=== PATIENT | female | born 2005 | race Two or more races ===

== ENCOUNTER 2025-03-12 14:06 | Emergency (ER) | payer MEDICAID, SELFPAY ==
[2025-03-12 14:59] VITALS: BP 106/71; PULSE 78; RESP 16; TEMP 36.9; O2SAT 99
--- NOTE | 2025-03-12 15:01 | XR_ITS ---
Examination: Complete OB ultrasound greater than 14 weeks Date and time of exam: March 12, 2025, 1520 hours INDICATIONS: Pelvic pain beginning 4 days ago Findings: Viable intrauterine single fetus with single amniotic sac presentation breech Cardiac motion 143 BPM Placenta anterior grade 0 Umbilical cord insertion 3 vessel seen Adequate amniotic fluid spine maternal right Cervix 3.9 cm Ovaries obscured by bowel gas. Composite estimated gestational age based on BPD, head circumference, abdominal circumference, femur length is 16 weeks 2 days Estimated weight 148 g. Survey of intracranial anatomy, spinal anatomy, abdominal anatomy, four-chamber heart performed with no abnormalities identified. Impression: Viable intrauterine gestation breech presentation.
--- NOTE | 2025-03-12 15:02 | PD.EDABDPN ---
ED Abdominal Pain RME/HPI General Chief Complaint: Abdominal Pain Stated complaint: ABD PAIN X 4 DAYS, PREG 16WK 4DYS Time seen by provider: 03/12/25 14:25 Arrival date/time: 03/12/25 14:06 RME / HPI RME / HPI narrative: 19-year-old female patient came in for evaluation regarding left lower abdominal pain. Onset of symptoms for about 5 days, associated with pelvic cramping. Severity of symptoms mild. Denies any dysuria denies any hematuria denies any frequency denies any vaginal bleeding or spotting. Patient is about 16 weeks and 4 days . Patient is 3 para 1 0. Related Data Home Medications ?Medication ?Instructions ?Recorded ?Confirmed albuterol sulfate 90 mcg/actuation 1 puff inhalation Q4H PRN 05/05/22 12/12/22 aerosol inhaler Shortness Of Breath Or Wheezing prenat.vits,jessica,[id number]-[id number] tab 12/21/22 Previous Rx's ?Medication ?Instructions ?Recorded diphenhydramine HCl 25 mg capsule 25 mg PO Q8H PRN itching #30 caps 11/13/22 permethrin 5 % topical cream 1 applic topical Q14D 2 doses #60 12/26/22 (Elimite) grams Allergies Allergy/AdvReac Type Severity Reaction Status Date / Time No Known Allergies Allergy Verified 03/12/25 14:09 Review of Systems Review of Systems Narrative Review of Systems: Review of system reviewed and within normal limits except mentioned in HPI ED Exam Narrative Physical exam: VITAL SIGNS: Reviewed. GENERAL APPEARANCE: Alert and interactive, follows commands, no acute distress, HEAD AND FACE: Non-traumatic. ENT: PERRL, pink conjunctivitis, eyelid no trauma, Mucous membrane moist. NECK: Supple, nontender, no nuchal rigidity. CHEST: No tenderness, no crepitus, no paradoxical movement, no retractions. LUNGS: Clear, well ventilated, symmetric, no rales, no wheezing, no ronchi, no stridor, good breath sounds bilaterally. HEART: Regular rate, regular rhythm, no murmur, no gallops. ABDOMEN: Soft, positive bowel sounds, nondistended, no guarding, nontender, no rebound, no masses, RECTAL: Deferred. GENITAL: Deferred. NEUROLOGICAL: Gross motor function intact sensory function intact, Appropriate for age. MUSCULOSKELETAL: low back nontender, full range of motion. EXTREMITIES: Nontender, full range of motion. SKIN: Color pink, dry, no rash, no lacerations, no abrasions, no contusions. LYMPHATICS: Deferred. Course Quality Measures none Orders Category Date Time Status US OB >= 14 weeks Fetus Stat Exams 03/12/25 15:01 Completed BMP [Basic Metabolic Panel] Stat Lab 03/12/25 15:13 Completed CBC [CBC] Stat Lab 03/12/25 15:13 Completed UA, C/S IF [Urinalysis, C/S if Indicated] Stat Lab 03/12/25 16:06 Completed Vital Signs Vital signs: Vital Signs Temperature 98.5 F 03/12/25 14:59 Pulse Rate 78 03/12/25 14:59 Respiratory Rate 16 03/12/25 14:59 Blood Pressure 106/71 03/12/25 14:59 Pulse Oximetry (%) 99 03/12/25 14:59 Oxygen Delivery Method Room Air 03/12/25 14:59 Abdominal Pain MDM [facility] Narrative [facility] Narrative:: 19-year-old female patient came in for evaluation regarding left lower abdominal pain. Onset of symptoms for about 5 days, associated with pelvic cramping. Severity of symptoms mild. Denies any dysuria denies any hematuria denies any frequency denies any vaginal bleeding or spotting. Patient is about 16 weeks and 4 days . Patient is 3 para 1 0. Lupus workup all came back unremarkable including ultrasound of the which showed single live intrauterine gestation about 16 weeks no abnormality noted. Results discussed with the patient. Patient was advised to return to emergency room for vaginal bleeding, fever or vomiting. Currently patient is not having any pain prior to discharge. Stable for discharge home Patient data External records reviewed:: None Clinical information provided by:: patient Social determinants that could affect healthcare access:: none Patient has the following chronic illnesses:: None How is presenting disease/condition affected by chronic disease/condition?: no chronic disease Evaluation data The following diagnostics were reviewed and interpreted by me:: lab results and radiology exam(s) Lab and/or radiology exams considered but not ordered:: None Interpretation Summary: See results MDM Medications / Prescriptions Medications or Prescriptions considered but not ordered:: None Medication administrations:: None Consultations Consultation(s) initiated? (list below): No Diagnosis Differential diagnosis abdominal pain: abdominal pain, constipation and other (UTI) Most likely diagnosis given after review of the tests above:: Abdominal pain, 16 weeks Admission Indicated Admission indicated?: not indicated Admission Request Was there a request for admission?: No Disposition Plan Disposition Plan: Discharge Discharge Attestation Discharge Attestation: The patient was given an opportunity to ask questions and understood the discharge instructions. Discharge instructions specifically effects, indications for sooner follow up or return to the emergency department, and the expected course of current diagnosis. Patient condition: Stable Discharge Plan Plan Patient Disposition: HOME (Self Care) Discharge Disposition comment: Stable Prescriptions/Referrals Prescriptions/Med Rec: No Action albuterol sulfate 90 mcg/actuation HFA aerosol inhaler 1 puff INHALATION Q4H PRN (Reason: Shortness Of Breath Or Wheezing) Patient Comments: INHALE 1 PUFF BY MOUTH EVERY 4-6 HOURS NEEDED Rx Instructions: INHALE 1 PUFF BY MOUTH EVERY 4-6 HOURS NEEDED diphenhydramine HCl 25 mg capsule 25 mg PO Q8H PRN (Reason: itching) Qty: 30 0RF prenat.vits,jessica,[id number] Tablet permethrin [Elimite] 5 % cream 1 applic topical Q14D Qty: 60 0RF Rx Instructions: apply second treatment 14 days after first treatment if live lice remain Referrals: Godfrey Mitchell MD [Primary Care Provider, Family Practice] - In 1 week Problem List Clinical Impression: Abdominal pain, and not yet delivered in second trimester Patient/Caregiver Discharge Instructions Discharge Activity: activity as tolerated Education Materials: Abdominal Pain Additional Instructions: Thank you for the opportunity for serving you today. You are stable for discharged . 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
[2025-03-12 15:26] LABS: Basophils # (Auto) 0.0 Thou/mm3 (0.0-0.2); Basophils % (Auto) 0 % (0-2.5); Eosinophils # (Auto) 0.1 Thou/mm3 (0.0-0.5); Eosinophils % (Auto) 1 % (0-10); Hematocrit 35.8 % (36.0-46.0); Hemoglobin 12.4 g/dL (12.0-16.0); Immature Granulocytes Auto 0.10 Thou/mm3 (0.00-0.00); Lymphocytes # (Auto) 2.4 Thou/mm3 (1.0-4.8); Lymphocytes % (Auto) 24 % (10-50); Mean Corpuscular HGB Conc 34.6 g/dl (31.0-37.0); Mean Corpuscular Hemoglobin 29.7 pg (25.0-35.0); Mean Corpuscular Volume 86 fL (80-100); Monocytes # (Auto) 0.8 Thou/mm3 (0.0-0.8); Monocytes % (Auto) 8 % (0-12); Neutrophils # (Auto) 6.4 Thou/mm3 (1.8-7.7); Neutrophils % (Auto) 65 % (37-80); Nucleated Red Blood Cell # 0.00 Thou/mm3 (0.00-0.00); Nucleated Red Blood Cell % 0 /100 WBC (0); Platelet Count 253 Thou/mm3 (140-440); RDW Standard Deviation 37.8 fL (36.4-46.3); Red Blood Count 4.17 Miln/mm3 (4.00-5.20); White Blood Count 9.8 Thou/mm3 (4.5-11.0)
[2025-03-12 15:41] LABS: Anion Gap 11 (7-16); BUN/Creatinine Ratio 10 Ratio (12-20); Blood Urea Nitrogen < 5 mg/dL (9-23); Calcium 9.5 mg/dL (8.3-10.6); Carbon Dioxide 24.3 mMol/L (20.0-31.0); Chloride 103 mMol/L (98-107); Creatinine (Component) 0.5 mg/dL (0.6-1.3); Estimated Creatinine Clearance 149.6 mL/min (>60); Glucose 84 mg/dL (74-106); Osmolality,Calculated 271 (275-295); Potassium 3.5 mMol/L (3.4-5.1); Sodium 138 mMol/L (136-145); eGFR > 60 See Note
[2025-03-12 16:12] LABS: Collection Type, Urine Clean Catch
[2025-03-12 16:46] LABS: Bacteria,Urine Rare; Bilirubin,Urine Negative (Negative); Blood,Urine Negative (Negative); Clarity,Urine Clear (Clear/Hazy); Color,Urine Colorless (Lt Yel-Yel); Culture Indicated,Urine Not Indicated; Glucose, Urine Negative (Negative); Ketones,Urine Negative (Negative); Leukocyte Esterase,Urine Negative (Negative); Nitrite,Urine Negative (Negative); PH,Urine 6.5 (5.0-7.0); Protein,Urine Negative (Neg - Trace); RBC,Urine 4 /hpf (0-3); Specific Gravity,Urine 1.007 (1.001-1.035); Squamous Epithelial Cell,Urine 3 /hpf (0-5); Urobilinogen,Urine Negative mg/dL (0.0-1.0); WBC,Urine 2 /hpf (0-5)
== END 2025-03-12 18:43 | disposition home or self-care (01) ==
PROVIDERS: Nurse Practitioner Family; Emergency Provider Emergency Medicine; PCP Family Medicine
DX: O26.892 Other specified pregnancy related conditions, second trimester (principal); R10.32 Left lower quadrant pain; R10.2 Pelvic and perineal pain; Z3A.16 16 weeks gestation of pregnancy
CPT/HCPCS: 36415; 76805; 80048; 81001; 85025; 99283

== ENCOUNTER 2025-04-24 10:20 | Outpatient (AMB) | payer MEDICAID, SELFPAY ==
--- NOTE | 2025-04-24 10:39 | OBCLNT_ITS ---
Vital Signs 04/24/25 10:40 Height 1.5 m Height Method Stated Weight 70.76 kg Weight Measurement Method Standing Scale BMI 31.4 BP 119/73 Blood Pressure Source Automatic Cuff Blood Pressure Location Left Upper Arm Position Sitting Respiration 16 Pulse 83 Pulse Source Monitor Temp 97.4 F Temp Source Oral Pulse Oximetry (%) 96 Oxygen Delivery Method Room Air Allergies/Home Meds Allergies & Medications Allergies No Known Allergies Allergy (Verified 04/24/25 10:40) Medication Reconciliation albuterol sulfate 90 mcg/actuation aerosol inhaler 1 puff inhalation Q4H PRN Shortness Of Breath Or Wheezing 05/05/22 [History Confirmed 04/24/25] diphenhydramine HCl 25 mg capsule 25 mg PO Q8H PRN itching #30 caps 11/13/22 [Rx Confirmed 04/24/25] prenat.vits,jessica,dut-nyzh-vwngg tab 12/21/22 [History Confirmed 04/24/25] permethrin 5 % topical cream (Elimite) 1 applic topical Q14D 2 doses #60 grams 12/26/22 [Rx Confirmed 04/24/25] Intake Visit Data Collection New Patient or Established: Established Patient (seen at [facility] within 3 years) Reason for Visit:: INITIAL CARE Seen by Clinical Staff ONLY (RN/MA): No Porcelain Technician Required: No Do You Feel Safe at Home: Yes Authorities Contacted: N/A PCP or OBGYN visit in last 3 months: Yes Hx Now: Yes Are you currently on any form of Control: No Pain Present Currently: No Pain Scale Used: Gonzalez-Alatorre/Numerical Pain scale:: 0 Smoking Status Smoking Status: Never smoker Immunizations Flu Vaccine in the Last 12 Months: No Flu Vaccine Exclusion Criteria: No Exclusion Criteria Questionnaires Covid-19 Vaccine Questionnaire Has patient been vacinated for Covid-19 Have you been vacinated for Covid-19: No PHQ-9 PHQ-2 Over the last 2 weeks, how often have you been bothered by any of the following problems? 1. Little interest or pleasure in doing things: not at all 2. Feeling down, depressed, or hopeless: not at all Total score: 0 PHQ-9 3. Trouble falling or staying asleep, or sleeping too much: Not at all 4. Feeling tired or having little energy: Not at all 5. Poor appetite or overeating: Not at all 6. Feeling bad about yourself - or that you are a failure or have let yourself or your family down: Not at all 7. Trouble concentrating on things, such as reading the newspaper or watching television: Not at all 8. Moving or speaking so slowly that other people could have noticed? - Or the opposite - being so fidgety or restless that you have been moving around a lot more than usual: not at all 9. Thoughts that you would be better off or of hurting yourself in some way: Not at all Total score: 0 Source: Developed by Drs. Zay Ribeiro, Meredith Lowery, Carroll Zhang and colleagues, with an educational siael from [employer]. 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 Patient is a transfer from [facility]. She is unsure of her last. But she states that they had told her her due date was August 24, 2025. Patient had an ultrasound March 12 at [facility] and she was 16 weeks on that day and that confirmed her EDC of August 24, 2025. Patient previous x 1. She had cholestasis with that and the baby had distress and she had a primary . Denies social habits. And she denies any existence of chronic illness. She reports with this she has had some blurry vision and sees stars. She wears glasses. Her vital signs were stable and her blood pressures were 07/21/1973. Headache goes away with Tylenol. She has also had some cramps lower pelvic area. Denies leaking or bleeding. And baby is moving. Reviewed labs from [facility]. Patient is O+, antibody screen negative, RPR nonreactive, rubella NI, hepatitis B negative, hep C negative, HIV negative, GC and Chlamydia were negative. She had a negative urine and drug screen. Patient has a maternal- medicine at 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: Past Medical History Past Medical History: Yes Hx Neurological Disorders (Brain tumor), No Hx Hypothyroidism, No Hx Hyperthyroidism, No Hx Breast Cancer, No Hx Cardiac Disorders, No Hx Hypertension, No Hx Cancer, No Hx Blood Disorders, No Hx Anemia, No Hx Gastrointestinal Disorders, No Hx Renal Disease, No Hx Deep Vein Thrombosis, No Hx Diabetes Mellitus Type 1, No Hx Diabetes Mellitus Type 2, No Hx Tubal Ligation, No Hx Hysterectomy and No Psychiatric Problems OB Initial Visit OB Flowsheet OB Flowsheet Initial Weight: Not Recorded Date -?-?-?-?-?-?-?-?-?-?-?-?- EGA Weight BP Alb Glu CTX Pres Fundal ht FHR Mov Dilation Station Effacement Hx Notes Visit Note 04/24/25 -?-?-?-?-?-?-?-?-?-?-?-?- 22w 4d 70.76 kg 119/73 absent unknown 22 154 active Complains of a headache sometimes. Patient takes Tylenol for that and it helps. Occasionally complains that she sees stars sometimes fetus is active. Denies leaking, bleeding, cramps. No itching or cholestasis symptoms. Patient is 19 years old 3 para 1 for OBI. She is a transfer from [facility] with some records. She is unsure of her last. However EDC by ultrasound August 24, 2025. Patient is a previous x 1 for distress. A history of cholestasis her last . Patient has no existing medical history and denies social habits. [facility]: 05/12/25, reviewed labs and ultrasound. Discussed SAB precautions. Continue prenatals. Keep maternal- medicine appointment for May 12. Comfort measures for headache and blurred vision. Increase proteins. Tylenol for headache. Increase fluids. Patient will get her eyes examined. I did a CMP and return in 4 weeks OB check [facility]: 05/12/25, reviewed labs and ultrasound. Discussed SAB precautions. Continue prenatals. Keep maternal- medicine appointment for May 12. Comfort measures for headache and blurred vision. Increase proteins. Tylenol for headache. Increase fluids. Patient will get her eyes examined. I did a CMP and return in 4 weeks OB check. Menstrual History Menstrual reliability: unknown Flow: normal Menstrual regularity: regular Monthly: Yes Age at menarche: 8 On control pills at conception: No Associated symptoms (LMP): Denies amenorrhea, nausea, vomiting, fatigue, breast tenderness, urinary frequency, irritability, bloating or other OB History : 3 Hx Total # of Abortions (Spontaneous & Elective): 1 # of Living Children: 1 Delivery History 1st : Child's name: NICK date: 01/02/23 sex: male Gestational age at delivery (weeks): 38 Delivery type: Delivery complications: NONE History of depression before or after : No Infection History & Risk Evaluation History of STDs: none Genetic Screening & History Genetic Screening/Teratology Counseling - Includes patient, baby's father, or anyone in either family with: 1. Patient's age 35 years or older as of estimated date of delivery: No 2. Thalassemia (Bulgarian, Ghanaian, Mediterranean, or Background); MCV less than 80: No 3. Neural Tube Defect (Meningomyelocele, Spina Bifida, or Anencephaly): No 4. Congenital Heart Defect: No 5. Down Syndrome: No 6. Boston-Sachs (Ashkenazi Religion, Cajun, Sri L[place]an [place]): No 7. Akosua Disease (Ashkenazi Religion): No 8. Familial Dysautonomia (Ashkenazi Religion): No 9. Sickle Cell Disease or Trait (): No 10. Hemophilia or other blood disorders: No 11. Muscular Dystrophy: No 12. Cystic Fibrosis: No 13. Enfield's Chorea: No 14. Mental Retardation/Autism: No 15. Other inherited genetic or chromosomal disorder: No 16. Maternal Metabolic Disorder (EG,TYPE 1 Diabetes, PKU): No 17. Patient or baby's father had a child with defects not listed above: No 18. Recurrent loss or a stillbirth: No 19. Medications (including supplements, vitamins, herbs or otc drugs)/illicit/recreational drugs/alcohol since last menstrual period: No 20. Any other: No Infection History 1. Live with someone with TB or exposed to TB: No 2. Rash or viral illness since last menstrual period: No 3. Hepatitis B,C: No Other (see comments) Source: [employer] Review of Systems Review of Systems Systems Reviewed: All systems reviewed, normal except as documented Constitutional Constitutional: Denies fatigue Gastrointestinal Gastrointestinal: Denies bloating, Denies nausea and Denies vomiting Genitourinary Genitourinary: Denies amenorrhea and Denies urinary frequency Psychiatric Psychiatric: Denies irritability Endocrine Endocrine: Denies fatigue Exam General Limitations: no limitations General Appearance: alert, in no apparent distress, comfortable, cooperative, healthy appearing, well developed and well groomed Head Head exam: atraumatic, normocephalic and normal inspection Neck Neck exam: Present normal inspection, full ROM and trachea midline Chest Chest inspection: Present normal inspection and symmetric chest wall rise Resp Respiratory exam: Present normal lung sounds bilaterally Card Cardiovascular exam: Present regular rate, normal rhythm and normal heart sounds Abdominal Abdominal exam: Present soft and normal bowel sounds Extremities Extremities exam: Present normal inspection and full ROM Psych Psychiatric exam: Present normal affect and normal mood Office Procedures OBC Clinic LOC & Office Proc's Nursing/Assessment Patient Status: Established Patient OB Clinic Nursing Assessment: Medication Reconciliation, Update PMH in EMR and Vital Signs OB Clinic Coordination of Care: Complex Care and Chronic Disease 1-5, Consent,records obtained, informed consent, Education Simp Pt/Fam, 1 Ins Authorization, Lab and Imaging orders, Results/Orders obtained and Staff clarify orders Special Needs: Heart tones Established Patient Charge Established Patient Point Assignment: 150 Established Patient Point Charge: EP Level 4 (120-155) Assessment & Plan Diagnosis / Problem List (1) Encounter for supervision of high risk in second trimester, antepartum: Status: Acute (2) Previous delivery affecting , antepartum: Status: Acute Plan Maternal- medicine at [facility] on May 12. Reviewed labs and ultrasound and dates with patient. Discussed labor precautions. Continue prenatals. I discussed PIH precautions. We did a CMP today ER precautions for headache that persist after Tylenol. Return in 4 weeks OB check. I advised patient to increase proteins and fluids and to watch her sugars Additional Plan Follow Up: 4 Weeks (obc)
[2025-04-24 10:40] VITALS: BP 119/73; PULSE 83; RESP 16; TEMP 36.3; O2SAT 96; BMI 31.4
== END 2025-04-24 11:14 | disposition home or self-care (01) ==
LOC: HODSOBC 10:20
PROVIDERS: PCP Family Medicine; Referring Provider Family Medicine; Supervising Provider Advanced Practice Midwife; Visit Provider Advanced Practice Midwife
DX: O09.292 Supervision of pregnancy with other poor reproductive or obstetric history, second trimester (principal); O34.219 Maternal care for unspecified type scar from previous cesarean delivery; Z87.59 Personal history of other complications of pregnancy, childbirth and the puerperium; Z3A.22 22 weeks gestation of pregnancy; O99.891 Other specified diseases and conditions complicating pregnancy; R51.9 Headache, unspecified; H53.8 Other visual disturbances
CPT/HCPCS: 99214; G0463

== ENCOUNTER 2025-05-22 09:34 | Outpatient (AMB) | payer MEDICAID, SELFPAY ==
--- NOTE | 2025-05-22 09:55 | OBCLNT_ITS ---
Vital Signs 05/22/25 09:56 Height 1.5 m Height Method Stated Weight 73.936 kg Weight Measurement Method Standing Scale BMI 32.8 BP 109/71 Blood Pressure Source Automatic Cuff Blood Pressure Location Right Upper Arm Position Sitting Respiration 18 Pulse 88 Pulse Source Monitor Temp 97.4 F Temp Source Temporal Artery Scan Pulse Oximetry (%) 98 Oxygen Delivery Method Room Air Allergies/Home Meds Allergies & Medications Allergies No Known Allergies Allergy (Verified 05/22/25 09:59) Medication Reconciliation albuterol sulfate 90 mcg/actuation aerosol inhaler 1 puff inhalation Q4H PRN S hortness Of Breath Or Wheezing 05/05/22 [History Confirmed 05/22/25] diphenhydramine HCl 25 mg capsule 25 mg PO Q8H PRN itching #30 caps 11/13/22 [Rx Confirmed 05/22/25] prenat.vits,jessica,[id number] tab 12/21/22 [History Confirmed 05/22/25] permethrin 5 % topical cream (Elimite) 1 applic topical Q14D 2 doses #60 grams 12/26/22 [Rx Confirmed 05/22/25] ursodiol 250 mg tablet 300 mg (1.2 x 250 mg) PO BID #60 tabs 05/22/25 [Rx] Immunizations Immunizations Flu Vaccine in the Last 12 Months: No Flu Vaccine Exclusion Criteria: No Exclusion Criteria Care OB Visit Log OB Flowsheet Initial Weight: Not Recorded Date -?-?-?-?-?-?-?-?-?-?-?-?- EGA Weight BP Alb Glu CTX Pres Fundal ht FHR Mov Dilation Station Effacement Hx Notes Visit Note 04/24/25 -?-?-?-?-?-?-?-?-?-?-?-?- 22w 4d 70.76 kg 119/73 absent unknown 22 154 active Complains of a headache sometimes. Patient takes Tylenol for that and it helps. Occasionally complains that she sees stars sometimes fetus is active. Denies leaking, bleeding, cramps. No itching or cholestasis symptoms. Patient is 19 years old 3 para 1 for OBI. She is a transfer from [facility] with some records. She is unsure of her last. However EDC by ultrasound August 24, 2025. Patient is a previous x 1 for distress. A history of cholestasis her last . Patient has no existing medical history and denies social habits. [facility]: 05/12/25, reviewed labs and ultrasound. Discussed SAB precautions. Continue prenatals. Keep maternal- medicine appointment for May 12. Comfort measures for headache and blurred vision. Increase proteins. Tylenol for headache. Increase fluids. Patient will get her eyes examined. I did a CMP and return in 4 weeks OB check [facility]: 05/12/25, reviewed labs and ultrasound. Discussed SAB precautions. Continue prenatals. Keep maternal- medicine appointment for May 12. Comfort measures for headache and blurred vision. Increase proteins. Tylenol for headache. Increase fluids. Patient will get her eyes examined. I did a CMP and return in 4 weeks OB check. 05/22/25 -?-?-?-?-?-?-?-?-?-?-?-?- 26w 4d 73.936 kg 109/71 absent unknown 26 145 active No complaints of h eadache today. Denies labor complaints. Reports movement. Complains of itching and it is getting worse. Over her entire body. Ursodiol ordered 300 twice daily per perinatologist. Third trimester labs and I added bile acids and bili. Her CMP was normal including liver enzymes and BUN/creatinine ratio. Patient has a follow-up ultrasound with maternal- medicine in 4 to 6 weeks. She is taking a low-dose baby aspirin per recommendation by maternal- medicine. Patient also will make an appointment with her neurologist because of history of a possible brain tumor. And she is using her albuterol inhaler as needed. Patient was scheduled with OB because of previous . Return in 3 weeks for OB check CRISTIAN Calculator Estimated Delivery Date Method Current WG Current Estimate 08/24/25 LMP (Uncertain) 26w 4d Other Estimates 08/25/25 Ultrasound #1 26w 3d 08/24/25 Ultrasound #2 26w 4d 08/24/25 Manual 26w 4d final cristian: 08/24 Notes Visit Date: 05/22/25 Last Updated by: Cherelle Hill CNM 05/01: cmp wnl. previous c/s x1, history of Breain tumor, patient will schedule with her neurologist Visit Date: 04/24/25 Last Updated by: Cherelle Hill CNM OB panel: HBSAG-,HIV-,HC-, RPR::NR, RUB ni, GC/CT-, , Ua-/UT-NIPT/CF/SMA-AFP-, O+,ABS- Office Procedures OBC Clinic LOC & Office Proc's Nursing/Assessment Patient Status: Established Patient OB Clinic Nursing Assessment: Medication Reconciliation, Update PMH in EMR and Vital Signs OB Clinic Coordination of Care: Complex Care and Chronic Disease 1-5, Education Complex Pt/Fam, Consent,records obtained, informed consent, Lab and Imaging orders, Results/Orders obtained and Staff clarify orders Special Needs: Heart tones Established Patient Charge Established Patient Point Assignment: 140 Established Patient Point Charge: EP Level 4 (120-155) Assessment & Plan Diagnosis / Problem List (1) Cholestasis during in second trimester: Status: Acute (2) Previous delivery affecting , antepartum: Status: Acute (3) Encounter for supervision of high risk in second trimester, antepartum: Status: Acute Plan Start ursodiol 300 twice daily. Schedule third trimester labs. I added A1c, total bile acids and bili. Comfort measures for itching. Patient is scheduling a follow-up appointment with neurology for her brain tumors that were benign and not growing according to her last visit. Follow-up with maternal- medicine in 4 weeks. And patient has not needed to use her albuterol inhaler for rescue. Return with OB in 3 weeks for previous Additional Plan Follow Up: 3 Weeks (obc)
[2025-05-22 09:56] VITALS: BP 109/71; PULSE 88; RESP 18; TEMP 36.3; O2SAT 98; BMI 32.8
== END 2025-05-22 10:35 | disposition home or self-care (01) ==
LOC: HODSOBC 09:34
PROVIDERS: PCP Family Medicine; Referring Provider Family Medicine; Supervising Provider Advanced Practice Midwife; Visit Provider Advanced Practice Midwife
DX: O09.292 Supervision of pregnancy with other poor reproductive or obstetric history, second trimester (principal); O34.219 Maternal care for unspecified type scar from previous cesarean delivery; O09.892 Supervision of other high risk pregnancies, second trimester; O26.642 Intrahepatic cholestasis of pregnancy, second trimester; Z3A.26 26 weeks gestation of pregnancy
CPT/HCPCS: 99214; G0463

== ENCOUNTER 2025-06-10 10:43 | Outpatient (AMB) | payer MEDICAID, SELFPAY ==
[2025-06-10 10:51] VITALS: BP 116/75; PULSE 98; RESP 18; TEMP 36; O2SAT 95; BMI 33.5
--- NOTE | 2025-06-10 10:51 | OBCLNT_ITS ---
Vital Signs 06/10/25 10:51 Height 1.5 m Height Method Stated Weight 75.41 kg Weight Measurement Method Standing Scale BMI 33.5 BP 116/75 Blood Pressure Source Automatic Cuff Blood Pressure Location Left Upper Arm Position Sitting Respiration 18 Pulse 98 Pulse Source Monitor Temp 96.8 F Temp Source Oral Pulse Oximetry (%) 95 Oxygen Delivery Method Room Air Allergies/Home Meds Allergies & Medications Allergies No Known Allergies Allergy (Verified 06/10/25 10:52) Medication Reconciliation albuterol sulfate 90 mcg/actuation aerosol inhaler 1 puff inhalation Q4H PRN Shortness Of Breath Or Wheezing 05/05/22 [History Confirmed 06/10/25] diphenhydramine HCl 25 mg capsule 25 mg PO Q8H PRN itching #30 caps 11/13/22 [Rx Confirmed 06/10/25] prenat.vits,jessica,rns-gilu-pocit tab 12/21/22 [History Confirmed 06/10/25] permethrin 5 % topical cream (Elimite) 1 applic topical Q14D 2 doses #60 grams 12/26/22 [Rx Confirmed 06/10/25] ursodiol 250 mg tablet 300 mg (1.2 x 250 mg) PO BID #60 tabs 05/22/25 [Rx Confirmed 06/10/25] Immunizations Immunizations Flu Vaccine in the Last 12 Months: No Flu Vaccine Exclusion Criteria: Refused by Patient Care OB Visit Log OB Flowsheet Initial Weight: Not Recorded Date -?-?-?-?-?-?-?-?-?-?-?-?- EGA Weight BP Alb Glu CTX Pres Fundal ht FHR Mov Dilation Station Effacement Hx Notes Visit Note 04/24/25 -?-?-?-?-?-?-?-?-?-?-?-?- 22w 4d 70.76 kg 119/73 absent unknown 22 154 active Complains of a headache sometimes. Patient takes Tylenol for that and it helps. Occasionally complains that she sees stars sometimes fetus is active. Denies leaking, bleeding, cramps. No itching or cholestasis symptoms. Patient is 19 years old 3 para 1 for OBI. She is a transfer from [facility] with some records. She is unsure of her last. However EDC by ultrasound August 24, 2025. Patient is a previous x 1 for distress. A history of cholestasis her last . Patient has no existing medical history and denies social habits. [facility] @[facility]: 05/12/25, reviewed labs and ultrasound. Discussed SAB precautions. Continue prenatals. Keep maternal- medicine appointment for May 12. Comfort measures for headache and blurred vision. Increase proteins. Tylenol for headache. Increase fluids. Patient will get her eyes examined. I did a CMP and return in 4 weeks OB check [facility] @[facility]: 05/12/25, reviewed labs and ultrasound. Discussed SAB precautions. Continue prenatals. Keep maternal- medicine appointment for May 12. Comfort measures for headache and blurred vision. Increase proteins. Tylenol for headache. Increase fluids. Patient will get her eyes examined. I did a CM P and return in 4 weeks OB check. 05/22/25 -?-?-?-?-?-?-?-?-?-?-?-?- 26w 4d 73.936 kg 109/71 absent unknown 26 145 active No complaints of hea dache today. Denies labor complaints. Reports movement. Complains of itching and it is getting worse. Over her entire body. Ursodiol ordered 300 twice daily per perinatologist. Third trimester labs and I added bile acids and bili. Her CMP was normal including liver enzymes and BUN/creatinine ratio. Patient has a follow-up ultrasound with maternal- medicine in 4 to 6 weeks. She is taking a low-dose baby aspirin per recommendation by maternal- medicine. Patient also will make an appointment with her neurologist because of history of a possible brain tumor. And she is using her albuterol inhaler as needed. Patient was scheduled with OB because of previous . Return in 3 weeks for OB check 06/10/25 -?-?-?-?-?-?-?-?-?-?-?-?- 29w 2d 75.41 kg 116/75 absent cephalic 29 144 active CRISTIAN Calculator Estimated Delivery Date Method Current WG Current Estimate 08/24/25 LMP (Uncertain) 30w 4d Other Estimates 08/25/25 Ultrasound #1 30w 3d 08/24/25 Ultrasound #2 30w 4d 08/24/25 Manual 30w 4d final cristian: 2/22 /26 Notes Visit Date: 06/10/25 Last Updated by: Elizabeth Black MD Previous c section cholestasis of on ursodiol so this time c section will be 37 weeks Plan one hour GTT and CMP and bile acids and follow up in 2 to 3 weeks / NST from 34 weeks Visit Date: 05/22/25 Last Updated by: Cherelle Hill CNM 05/01: cmp wnl. previous c/s x1, history of Breain tumor, patient will schedule with her neurologist Visit Date: 04/24/25 Last Updated by: Cherelle Hill CNM OB panel: HBSAG-,HIV-,HC-, RPR::NR, RUB ni, GC/CT-, , Ua-/UT-NIPT/CF/SMA-AFP-, O+,ABS- Office Procedures OBC Clinic LOC & Office Proc's Nursing/Assessment Patient Status: Established Patient OB Clinic Nursing Assessment: Medication Reconciliation, Update PMH in EMR and Vital Signs OB Clinic Coordination of Care: Complex Care and Chronic Disease 1-5, Consent,records obtained, informed consent, Education Simp Pt/Fam, 1 Ins Authorization, Lab and Imaging orders, Results/Orders obtained and Staff clarify orders Special Needs: Heart tones Established Patient Charge Established Patient Point Assignment: 150 Established Patient Point Charge: EP Level 4 (120-155) Assessment & Plan Diagnosis / Problem List (1) Cholestasis during in second trimester: Status: Acute (2) Previous delivery affecting , antepartum: Status: Acute Additional Assessment Previous c section cholestasis of on ursodiol so this time c section will be 37 weeks Plan one hour GTT and CMP and bile acids and follow up in 2 to 3 weeks / NST from 34 weeks / kick count and labor precautions Additional Plan Follow Up: 2 to 3 weeks
== END 2025-06-10 12:17 | disposition home or self-care (01) ==
LOC: HODSOBC 10:43
PROVIDERS: PCP Family Medicine; Referring Provider Family Medicine; Supervising Provider Obstetrics & Gynecology; Visit Provider Obstetrics & Gynecology
DX: O09.893 Supervision of other high risk pregnancies, third trimester (principal); O26.643 Intrahepatic cholestasis of pregnancy, third trimester; O09.293 Supervision of pregnancy with other poor reproductive or obstetric history, third trimester; O34.219 Maternal care for unspecified type scar from previous cesarean delivery; Z3A.29 29 weeks gestation of pregnancy; Z28.21 Immunization not carried out because of patient refusal
CPT/HCPCS: 99214; G0463

== ENCOUNTER 2025-07-02 13:52 | Outpatient (AMB) | payer MEDICAID, SELFPAY ==
--- NOTE | 2025-07-02 13:55 | OBCLNT_ITS ---
Vital Signs 07/02/25 14:02 Height 1.5 m Height Method Stated Weight 77.337 kg Weight Measurement Method Standing Scale BMI 34.3 BP 113/69 Blood Pressure Source Automatic Cuff Blood Pressure Location Left Upper Arm Position Sitting Respiration 18 Pulse 85 Pulse Source Monitor Temp 97.2 F Temp Source Oral Pulse Oximetry (%) 98 Oxygen Delivery Method Room Air Allergies/Home Meds Allergies & Medications Allergies No Known Allergies Allergy (Verified 07/02/25 14:04) Medication Reconciliation albuterol sulfate 90 mcg/actuation aerosol inhaler 1 puff inhalation Q4H PRN Shortness Of Breath Or Wheezing 05/05/22 [History Confirmed 07/02/25] diphenhydramine HCl 25 mg capsule 25 mg PO Q8H PRN itching #30 caps 11/13/22 [Rx Confirmed 07/02/25] prenat.vits,jessica,juw-vurn-rbacf tab 12/21/22 [History Confirmed 07/02/25] permethrin 5 % topical cream (Elimite) 1 applic topical Q14D 2 doses #60 grams 12/26/22 [Rx Confirmed 07/02/25] ursodiol 250 mg tablet 300 mg (1.2 x 250 mg) PO BID #60 tabs 05/22/25 [Rx Confirmed 07/02/25] Immunizations Immunizations Flu Vaccine in the Last 12 Months: No Flu Vaccine Exclusion Criteria: Refused by Patient Care OB Visit Log OB Flowsheet Initial Weight: Not Recorded Date -?-?-?-?-?-?-?-?-?-?-?-?- EGA Weight BP Alb Glu CTX Pres Fundal ht FHR Mov Dilation Station Effacement Hx Notes Visit Note 04/24/25 -?-?-?-?-?-?-?-?-?-?-?-?- 22w 4d 70.76 kg 119/73 absent unknown 22 154 active Complains of a headache sometimes. Patient takes Tylenol for that and it helps. Occasionally complains that she sees stars sometimes fetus is active. Denies leaking, bleeding, cramps. No itching or cholestasis symptoms. Patient is 19 years old 3 para 1 for OBI. She is a transfer from [facility] with some records. She is unsure of her last. However EDC by ultrasound August 24, 2025. Patient is a previous x 1 for distress. A history of cholestasis her last . Patient has no existing medical history and denies social habits. [facility]: 05/12/25, reviewed labs and ultrasound. Discussed SAB precautions. Continue prenatals. Keep maternal- medicine appointment for May 12. Comfort measures for headache and blurred vision. Increase proteins. Tylenol for headache. Increase fluids. Patient will get her eyes examined. I did a CMP and return in 4 weeks OB check [facility]: 05/12/25, reviewed labs and ultrasound. Discussed SAB precautions. Continue prenatals. Keep maternal- medicine appointment for May 12. Comfort measures for headache and blurred vision. Increase proteins. Tylenol for headache. Increase fluids. Patient will get her eyes examined. I did a C MP and return in 4 weeks OB check. 05/22/25 -?-?-?-?-?-?-?-?-?-?-?-?- 26w 4d 73.936 kg 109/71 absent unknown 26 145 active No complaints of he adache today. Denies labor complaints. Reports movement. Complains of itching and it is getting worse. Over her entire body. Ursodiol ordered 300 twice daily per perinatologist. Third trimester labs and I added bile acids and bili. Her CMP was normal including liver enzymes and BUN/creatinine ratio. Patient has a follow-up ultrasound with maternal- medicine in 4 to 6 weeks. She is taking a low-dose baby aspirin per recommendation by maternal- medicine. Patient also will make an appointment with her neurologist because of history of a possible brain tumor. And she is using her albuterol inhaler as needed. Patient was scheduled with OB because of previous . Return in 3 weeks for OB check 06/10/25 -?-?-?-?-?-?-?-?-?-?-?-?- 29w 2d 75.41 kg 116/75 absent cephalic 29 144 active 07/02/25 -?-?-?-?-?-?-?-?-?-?-?-?- 32w 3d 77.337 kg 113/69 occasional cephalic 32 144 active CRISTIAN Calculator Estimated Delivery Date Method Current WG Current Estimate 08/24/25 LMP (Uncertain) 32w 3d Other Estimates 08/25/25 Ultrasound #1 32w 2d 08/24/25 Ultrasound #2 32w 3d 08/24/25 Manual 32w 3d final cristian: 08/24 Notes Visit Date: 07/02/25 Last Updated by: Elizabeth Black MD cholestasis of on ursodiol so this time c section will be 37 wee ks Plan one hour GTT and CMP and bile acids and follow up in 2 to 3 weeks / NST from now / Bile acids are pending / patient did her labs just 2 days ago/ will request Brain MRI report from [facility] / continue ursodiol and follow up in 10 days /plan repeat LTCS on 08/06/2025 at 07.30 am Visit Date: 06/10/25 Last Updated by: Elizabeth Black MD Previous c section cholestasis of on ursodiol so this time c section will be 37 weeks Plan one hour GTT and CMP and bile acids and follow up in 2 to 3 weeks / NST from 34 weeks Visit Date: 05/22/25 Last Updated by: Cherelle Hill CNM 05/01: cmp wnl. previous c/s x1, history of Breain tumor, patient will schedule with her neurologist Visit Date: 04/24/25 Last Updated by: Cherelle Hill CNM OB panel: HBSAG-,HIV-,HC-, RPR::NR, RUB ni, GC/CT-, , Ua-/UT-NIPT/CF/SMA-AFP-, O+,ABS- Office Procedures OBC Clinic LOC & Office Proc's Nursing/Assessment Patient Status: Established Patient OB Clinic Nursing Assessment: Medication Reconciliation, Update PMH in EMR and Vital Signs OB Clinic Coordination of Care: Complex Care and Chronic Disease 1-5, Consent,records obtained, informed consent, Education Simp Pt/Fam, Lab and Imaging orders, Results/Orders obtained and Staff clarify orders Special Needs: Heart tones Established Patient Charge Established Patient Point Assignment: 135 Established Patient Point Charge: EP Level 4 (120-155) Assessment & Plan Diagnosis / Problem List (1) Cholestasis during in second trimester: Status: Acute (2) Previous delivery affecting , antepartum: Status: Acute (3) Brain tumor (benign): Status: Acute Qualifiers: Benign neoplasm of brain location: unspecified brain region Qualified Code(s): D33.2 - Benign neoplasm of brain, unspecified Plan: had an MRI on 02/21/2022 and shows a 1 cm lesion in lower [place] near the medulla junction stable lesion visually / see scanned report Assessment and Plan: Will request MRI report/ neurologist will see her after the delivery Additional Assessment cholestasis of on ursodiol so this time c section will be 37 weeks Plan one hour GTT and CMP and bile acids and follow up in 2 to 3 weeks / NST from now / Bile acids are pending / patient did her labs just 2 days ago/ will request Brain MRI report from [facility] / continue ursodiol and follow up in 10 days /plan repeat LTCS on 08/06/2025 at 07.30 am
[2025-07-02 14:02] VITALS: BP 113/69; PULSE 85; RESP 18; TEMP 36.2; O2SAT 98; BMI 34.3
== END 2025-07-02 14:50 | disposition home or self-care (01) ==
LOC: HODSOBC 13:52
PROVIDERS: Supervising Provider Obstetrics & Gynecology; Visit Provider Obstetrics & Gynecology
DX: O09.893 Supervision of other high risk pregnancies, third trimester (principal); O26.643 Intrahepatic cholestasis of pregnancy, third trimester; O09.293 Supervision of pregnancy with other poor reproductive or obstetric history, third trimester; O34.211 Maternal care for low transverse scar from previous cesarean delivery; O99.353 Diseases of the nervous system complicating pregnancy, third trimester; D49.6 Neoplasm of unspecified behavior of brain; Z3A.32 32 weeks gestation of pregnancy; Z28.21 Immunization not carried out because of patient refusal
CPT/HCPCS: 99214; G0463